=== PATIENT | male | born 1980 | race Caucasian/White ===

== ENCOUNTER 2017-06-10 01:58 | Emergency (ER) | payer SELFPAY ==
[~2017-06-10] VITALS: Ht 165.1 cm; Wt 88.0 kg
[2017-06-10] MEDS ORDERED: IBUPROFEN 600MG TABLET PO ONE (06:45)
[2017-06-10] MEDS ORDERED: PROMETHAZINE/DEXTROMETHORPHAN 6.25-15MG/5ML BOTTLE 120ML PO PRN (06:45)
[2017-06-10] MEDS ORDERED: ALBUTEROL (0.083%) 2.5MG/3ML NEB HHN ONE ×2 (06:45→08:15)
[2017-06-10 09:28] VITALS: BP 117/71
== END 2017-06-10 09:29 | disposition home or self-care (01) ==
LOC: ER 01:58
DX: J06.9 Acute upper respiratory infection, unspecified (principal); S20.219A Contusion of unspecified front wall of thorax, initial encounter; X58.XXXA Exposure to other specified factors, initial encounter; Y93.9 Activity, unspecified; Y92.89 Other specified places as the place of occurrence of the external cause; R03.0 Elevated blood-pressure reading, without diagnosis of hypertension
CPT/HCPCS: 71010; 87804; 94640; 99285; J7611; Z7610